=== PATIENT | male | born 1975 | race Caucasian/White ===

== ENCOUNTER → 2016-12-06 | Outpatient (CLI) | payer MEDICAID ==
--- NOTE | 2016-12-06 11:16 | DI ---
INDICATION: ITS.REASON: Z86.11 HX OF TUBERCULOSIS PROCEDURE: CHEST 2-VIEWS UPRIGHT (PA \T\ LAT) Encounter: Initial COMPARISON: None FINDINGS: The lungs are clear without evidence of focal abnormal airspace opacity. There is no pleural effusion or pneumothorax. The heart size, mediastinal contours and pulmonary vascularity are within normal limits. There is no significant skeletal abnormality. IMPRESSION: No acute cardiopulmonary disease. No radiographic evidence of active tuberculosis. .
== END ==
LOC: IMA 10:00
PROVIDERS: ATTEND Nurse Practitioner Family
DX: Z86.11 Personal history of tuberculosis (principal)

== ENCOUNTER 2017-11-10 12:03 | Inpatient (IN) ==
--- NOTE | 2017-11-10 12:17 | Emergency Department Report ---
Altered Mental Status HPI - General Stated Complaint: unresponsive Time Seen by Provider: 11/10/17 12:12 Source: EMS, RN notes reviewed, old records reviewed Mode of arrival: EMS Limitations: altered mental status - History of Present Illness HPI narrative: 42yo man presented to the ER today by EMS for "Altered Mental Status". Pt is from [place], [place]; no local PCM. Overnight, he drank most of a liter of vodka and passed out on his friend's couch. This AM, pt was 'unresponsive', so the friend called EMS. En route, pt would open his eyes, posture, and moan, but otherwise did not respond to EMS. complaint: altered mental status, decreased responsiveness Onset (ago): hour(s) Timing confirmed by: other (Friend) Severity: severe Consistency of symptoms: constant Context: alcohol abuse Treatments prior to arrival: IV fluid - Related Data Home Medications Medication Instructions Recorded Confirmed atorvastatin See Label Instructions PO .COMPLEX 03/27/17 aspirin 81 mg tablet,delayed 81 mg PO DAILY 07/05/17 release lisdexamfetamine 20 mg capsule 20 mg PO QAM 07/05/17 trazodone 150 mg tablet 150 mg PO HS tab 07/05/17 Allergies Allergy/AdvReac Type Severity Reaction Status Date / Time No Known Allergies Allergy Verified 07/05/17 08:45 Review of Systems Limitations: ROS unobtainable due to patient's medical condition [facility] Medical History (Last Reviewed 07/05/17 @ 08:58 by Dana West MD) Depression (Acute Medical) Anxiety (Acute Medical) History of blood clots (Acute Medical) Blindness (Acute Medical) Surgical History: Bilat CTR, 05/2012. Abbi filter in place Family History: Family History (Last Reviewed 07/05/17 @ 08:58 by Dana West MD) Mother No problems noted. - Social History Smoking status: Current every day smoker Substance use type: does not use Alcohol intake: former Last drink: hours (ago) Current occupational status: employed Current occupation: [employer] Exam - Limitations Limitations: altered mental status - General General appearance: lethargic - Head Head exam: atraumatic, normocephalic, normal inspection - Eye Eye exam: Present: normal appearance, PERRL, EOMI. Absent: scleral icterus - ENT ENT exam: Present: normal exam, normal oropharynx, mucous membranes moist, normal external ear exam - Neck Neck exam: Present: normal inspection, full ROM, trachea midline. Absent: tenderness, lymphadenopathy - Chest Chest inspection: Present: normal inspection, symmetric chest wall rise. Absent : tenderness, rash - Respiratory Respiratory exam: Present: normal lung sounds bilaterally. Absent: respiratory distress, wheezes, stridor, prolonged expiratory phase, crackles - Cardiovascular Cardiovascular exam: Present: normal rhythm, tachycardia, normal heart sounds. Absent: rubs, gallop, clicks - Extremities Exam Extremities exam: Present: normal inspection, full ROM, normal capillary refill. Absent: tenderness, pedal edema - Skin Skin exam: Present: warm, dry, intact, other (Pt has soiled himself (urine)). Absent: rash - Neurological Exam Neurological exam: Present: reflexes normal. Absent: alert - Expanded Neurological Exam Coma scale eye opening: to voice Coma scale motor response: localizes to pain Coma scale verbal response: none Coma scale total: 9 Course - Consultations Consultation #1: Hospitalist: Will admit for obs of acute alcoholic intoxication. Time: 13:36 Altered Mental Status - MDM Narrative Medical decision making narrative: Pt acutely intoxicated after being sober for 1 year. No other substances present on pts tox screen, but EtOH is 491 after being asleep on friend's couch for indeterminate period of time. Contacted hospitalist for obs admission. - Differential Diagnosis Likely: alcoholic intoxication, altered mental status, delirium, hypoglycemia, hyponatremia, subarachnoid hemorrhage - Medical Records Attestation: I reviewed the patient's medical records. - Lab Data Attestation: I reviewed the patient's lab results. Result diagrams: 11/10/17 12:11 11/10/17 12:11 - Radiology Data Attestation: I reviewed the patient's radiology results. CXR: Stable chest. No acute CT pathology. - EKG Data EKG #1 EKG attestation: Yes: I reviewed and interpreted this EKG. EKG shows normal: sinus rhythm, axis, intervals, QRS complexes, ST-T waves Rate: tachycardia Disposition Clinical Impression: Alcohol intoxication Qualifiers: Complication of substance-induced condition: uncomplicated Qualified Code(s): F10.920 - Alcohol use, unspecified with intoxication, uncomplicated Disposition: 02 To OBS [facility] [facility] Condition: Stable Time of Disposition: 13:45 - Seen By: physician
--- OUTSIDE RECORDS SUMMARY | 2017-11-10 12:36 | External Medical Summary | Clinical Summary ---
:1975 Author Organization [facility] Address [address] [id number] Care Team Providers Name Role Phone Unavailable Primary Care Provider Unavailable Allergies No Known Allergies Current Medications Prescription Sig. Disp. Refills Start Date End Date Status varenicline (CHANTIX) Take 0.5 mg by mouth daily. Day 1-3: take 0.5mg daily Active 0.5 MG tablet Day 4-7: take 0.5mg BID Days 7+: take 1mg BID traZODone (DESYREL) Take 1 tablet (100 30 tablet 0 07/18/2016 Active 100 MG mg total) by mouth tabletIndications: at bedtime as Insomnia needed for Sleep. Indications: Trouble Sleeping sertraline (ZOLOFT) Take 1 & 1/2 45 tablet 0 07/18/2016 Active 100 MG tabs po daily tabletIndications: Indications: Major Major Depressive Depressive Disorder Disorder hydrOXYzine (ATARAX) Take 1 tab po bid 60 tablet 0 07/18/2016 Active 50 MG prn anxiety tabletIndications: Indications: Anxiety Neurosis Anxiety Neurosis Active Problems Problem Noted Date Alcohol withdrawal (HCC) 07/16/2016 Resolved Problems Problem Noted Date Resolved Date Suicide ideation 07/16/2016 07/18/2016 Depression with suicidal ideation 03/12/2016 03/15/2016 Social History Tobacco Use Types Packs/Day Years Used Date Current Every Day Smoker Cigarettes 1 Smokeless Tobacco: Never Used Tobacco Cessation: Ready to Quit: Yes; Counseling Given: Yes Alcohol Use Drinks/Week oz/Week Comments Yes 2 pints/ day vodka Sex Assigned at Date Recorded Not on file Last Filed Vital Signs Vital Sign Reading Time Taken Blood Pressure 142/96 07/18/2016 8:24 AM [employer] Pulse 132 07/18/2016 8:24 AM [employer] Temperature 37.1 C (98.7 F) 07/18/2016 8:23 AM [employer] Respiratory Rate 18 07/18/2016 8:24 AM [employer] Oxygen Saturation 98% 07/17/2016 7:31 AM [employer] Inhaled Oxygen Concentration - - Weight 74.8 kg (165 lb) 07/16/2016 1:18 AM [employer] Height 170.2 cm (5' 7") 07/16/2016 1:18 AM [employer] Body Mass Index 25.84 07/16/2016 1:18 AM [employer] Plan of Treatment Health Maintenance Due Date Last Done Comments Varicella Vaccines (1 of 2 - 2 Dose Adolescent Series) 1987 DTaP,Tdap,and Td Vaccines (1 - Tdap) 1993 Influenza Vaccine (Season Ended) 2018 Implants Implanted Type Area Social Service Liaison Device Expiration Date Model / Identifier Serial / Lot Filter-Ivc Filter-IVC Results Not on filefrom Last 3 Months
[2017-11-10] MEDS: NS 1,000 ML IV SCH (12:59)
[2017-11-10 14:35] VITALS: BMI 20.5
[2017-11-10] MEDS ORDERED: PHENOBARBITAL 130mg/ml INJECTION IV PRN (15:11)
[2017-11-10] MEDS ORDERED: ONDANSETRON 4 MG/2 ML INJECTION IVP PRN (15:11)
[2017-11-10] MEDS ORDERED: FOLIC ACID 5 MG/ML INJECTION IVP SCH (15:11)
[2017-11-10] MEDS ORDERED: THIAMINE 200mg/2ml INJECTION IVP SCH (15:11)
[2017-11-10] MEDS ORDERED: THIAMINE 100 MG in NS 100 ML IVP SCH (16:00)
[2017-11-10] MEDS ORDERED: THIAMINE 100 MG in NS 50 ML IVP SCH (16:00)
--- NOTE | 2017-11-10 16:00 | History & Physical Report ---
History of Present Illness Date: 11/10/17 Chief complaint: altered mental status, acute alcohol intoxication HPI: Luis Carlos Virgen is a 42-year-old patient of Dr. James who was brought to [facility] ED today, 11/10/17 for evaluation of acute altered mental status. On exam, he is acutely intoxicated and a poor historian, refusing to answer some questions. Prior medical records, ED records and nursing notes were reviewed and contribute to the history. Luis Carlos reports that he has a history of depression and alcohol abuse. He states that he had been sober for about a year when he started drinking again on 11/03/17. He reports increased life stressors contributed to his relapse. He also admits to continual "thoughts of suicide" for "awhile" and reports that his suicidal ideations have been worse since he started drinking again. He states that he has been drinking about a gallon of vodka daily since 11/03/17. He has a known psychiatric history including depression with prior suicidal ideations and prior unsuccessful suicide attempts via drug over dose. He admits to a plan of over dosing on Seroquel but admits that he does not currently have Seroquel or access to Seroquel. ED records indicate that last night he drank over a liter of vodka and passed out on his friend's couch. This morning, his friend found him "unresponsive" and called EMS. Luis Carlos denies taking any pills or additional medications last night in addition to drinking. During transport to [facility] ED, EMS reported that he would open his eyes and moan but would not otherwise respond to EMS. Upon arrival to the ED, labs were obtained and revealed leukocytosis (WBC 12.5), elevated hemoglobin (19.2) and hypernatremia (Na 152) all consistent with dehydration. His troponin was negative and TSH was 0.52. Alcohol level was elevated at 491 and urine drug screen was negative. He admits to a past history of seizures with alcohol withdrawal. Due to his suicidal ideation and acute intoxication with dehydration and electrolyte abnormalities, Dr. Zaidi was consulted and he was admitted into observation status for closely monitoring and continued care. On exam, he is seen shortly after admission in his room, #[id number]. Nursing is present on exam. He has his head covered with his blankets and reluctantly acknowledges care team. He is selective in answering questions on exam and refuses to provide information including current home medications and pharmacy used to fill his medications. His story is inconsistent at times with report in ED with him stating that he was brought to the ED from prison today. He denies any acute physical complaints including no chest pain, shortness of breath, abdominal pain, nausea or vomiting. He does become tearful on exam when disclosing that his mother suffered from depression and committed suicide in front of him when he was 7 years old. Review of Systems All systems PM: 10-point ROS was reviewed, no additional remarkable complaints except Review of systems: Limited due to acute alcohol intoxication. - Constitutional Constitutional: Present: fatigue. Absent: chills, fever(s) - EENMT Eyes: Absent: photophobia Ears: Absent: ear pain Nose: Absent: nosebleeds Mouth/Throat: Present: dry mouth. Absent: sore throat, changes in swallowing EENMT Comments: Missing teeth. - Cardiovascular Cardiovascular: Absent: chest pain, palpitations, syncope, dyspnea on exertion, orthopnea, edema Rhythm: Present: regular rhythm Vascular: Absent: pallor of an extermity, pedal edema, unilateral swelling - Respiratory Respiratory: Absent: cough, dyspnea, hemoptysis, dyspnea on exertion, wheezing - Gastrointestinal Gastrointestinal: Absent: abdominal pain, diarrhea, hematochezia, melena, nausea , vomiting - Genitourinary Genitourinary: Absent: dysuria, flank pain, hematuria - Musculoskeletal Musculoskeletal: Present: back pain (chronic). Absent: deformity - Integumentary/Breasts Integumentary: Absent: rash - Neurological Neurological: Absent: confusion, dizziness, focal weakness - Psychiatric Psychiatric: Present: anxiety, depression, suicidal ideation - Endocrine Endocrine: Absent: flushing, heat intolerance, palpitations - Hematologic/Lymphatic Hematologic/Lymphatic: Absent: easy bruising - Allergic/Immunologic Allergic/Immunologic: Absent: seasonal rhinorrhea Past Medical History Medical History: Medical History (Last Reviewed 07/05/17 @ 08:58 by Dana West MD) Depression (Acute) Anxiety (Acute) History of blood clots (Acute) Medical History Updates: Alcohol abuse. Chronic pain - back and bilateral knees. Hyperlipidemia. CAD. Depression. Anxiety. Tobacco dependency. History of DVT - [place] filter in place. History of seizures with alcohol withdrawal. History of suicidal ideation with attempted overdose. Surgical History: Bilateral carpal tunnel release - 05/2012. [place] filter in place. Family History Updates: Mother - , age 24, suicide, major depression. Father - , age 50, CAD, [place]. brother, in house fire. Family History: As Above - Social History Smoking status: Current every day smoker Packs per day: 1.5 Packs-years: 25 second hand exposure: Yes Substance use type: does not use Alcohol intake frequency: 3 or more drinks per day (Relapse on 11/03/17 after a year sober) Last drink: hours (ago) Housing: house Household members: spouse, family (4 kids) Current occupational status: unemployed Current residence: Apartment/Private Home Social history: PCP - Dr. James. Medications Home Medications Medication Instructions Recorded Confirmed Type atorvastatin See Label Instructions PO .COMPLEX 03/27/17 History aspirin 81 mg tablet,delayed 81 mg PO DAILY 07/05/17 History release lisdexamfetamine 20 mg capsule 20 mg PO QAM 07/05/17 History trazodone 150 mg tablet 150 mg PO HS tab 07/05/17 History Allergies Allergy/AdvReac Type Severity Reaction Status Date / Time No Known Allergies Allergy Verified 07/05/17 08:45 Exam Vital Signs: Temperature 97.4 F 11/10/17 14:30 Pulse Rate 145 H 11/10/17 14:30 Respiratory Rate 22 11/10/17 14:30 Blood Pressure 121/79 11/10/17 14:30 Pulse Oximetry 97 11/10/17 14:30 Telemetry Rhythm: Sinus Tachycardia Height/Weight/BMI: Height 5 ft 8 in Weight 135 lb 5.821 oz Body Mass Index 20.5 Comments: Resting in bed; head and body covered with blankets; reluctant to provide history or exam. - Constitutional Present: no acute distress, well nourished, well developed - Routine HEENT Exam Head: Present: normocephalic, atraumatic Eye: Present: PERRL ENT: Present: mucous membranes dry (tacky mucous membranes) Comments: Missing teeth. - Routine Neck Exam Present: supple, full ROM, trachea midline - Routine Chest/Breast/Axilla Exam Chest wall: Absent: pacemaker - Routine Respiratory Exam Present: CTA bilaterally. Absent: respiratory distress, wheezes - Routine Cardiovascular Exam Present: S1, S2, tachycardia - Routine Abdominal Exam Present: soft, normoactive bowel sounds, non tender - Routine Extremities Exam Present: no edema, full ROM, pulses intact - Routine Back/Spine/Pelvis Exam Back/Spine: Present: full ROM. Absent: vertebral tenderness - Routine Skin Exam Present: intact, dry, warm Comments: Afebrile. - Routine Neurological Exam Present: alert, oriented X3, moving all extremities Speech slurred. - Routine Psychiatric Exam Present: suicidal ideation, depressed Results - Labs CBC & Chem 7: 11/10/17 12:11 11/10/17 12:11 Assessment and Plan (1) Alcohol intoxication Current visit: Yes Status: Acute Assessment and Plan: Assessment Acute alcohol intoxication, present on admission Dehydration Leukocytosis (WBC 12.5), present on admission Elevated hemoglobin (Hgb 19.2), present on admission Hypernatremia (Na 152), present on admission History of alcohol abuse and dependency Suicidal ideation Major depression Chronic pain - back and bilateral knees Hyperlipidemia CAD Anxiety Tobacco dependency History of DVT - Abbi filter in place History of seizures with alcohol withdrawal History of suicidal ideation with attempted overdose Plan Admit to observation status under the care of Dr. Zaidi. Patient placed on medical unit with close monitoring as there was no ICU bed available. IV fluids initiated in ED. Continue 1/2NS at 125cc/hr for dehydration and hypernatremia. Suicide and alcohol withdrawal precautions. Initiate Librium for acute alcohol withdrawal. Folic acid and thiamine daily given alcohol abuse history. Ativan PRN agitation/withdrawal symptoms as well as seizures. Zofran as needed for nausea/vomiting. Advance diet as tolerated. Monitor closely on telemetry. RT consult for tobacco cessation counselling. Nicotine patch available. SCDs for DVT prophalyxis. Protonix for GI protection. Will recheck labs in AM to monitor blood counts, electrolytes and renal function. Upon discharge, patient's care will be returned to his PCP, Dr. James. Once medically stable, patient is requesting assistance with alcohol abuse - was previously treated at [facility]. Recommend psychiatric evaluation prior to discharge. DVT Prophylaxis: SCD's GI Prophylaxis: Protonix Resuscitation Status: Full Code - Time spent with patient Time with patient PN: 50 minutes - Physician Narrative Physician: Erickson Zaidi MD Narrative: Date: 11/10/17 Time: 1655 Have independently interviewed and examined pt. Chart reviewed. Case discussed with Dr Wong and my PA. Care plan developed with my supervision; agree with above. Presents to ED as was unresponsive with am. Has been drinking for the past week- wanting to drink himself to . Not been eating well during this time. No stools. Some cough/congestion. Evaluated in ED. Sodium increased and blood ETOH level very elevated. Placed in OBS for further treatment. Lungs: decreased, no distress CV: tachy, regular HEENT: MM dry MSE: speech slow, global slowing of mentation Plan: OBS. IV for hydration and to correct sodium. Thiamine and folate. IV Protonix for protection from potential ETOH gastritis. Monitor lab - likely see HGV decrease with fluids as appears very hem concentrated due to dehydration. Benzo prn withdrawal. Will need psych evaluation due to depressive/suicidal thoughts. Hospital Course Summary Disclaimer: The visit summary below is not to be considered part of the above Progress Note. Hospital Course: Plan - 11/10/17: Admit to observation status under the care of Dr. Zaidi. Patient placed on medical unit with close monitoring as there was no ICU bed available. IV fluids initiated in ED. Continue 1/2NS at 125cc/hr for dehydration and hypernatremia. Suicide and alcohol withdrawal precautions. Initiate Librium for acute alcohol withdrawal. Folic acid and thiamine daily given alcohol abuse history. Ativan PRN agitation/withdrawal symptoms as well as seizures. Zofran as needed for nausea/vomiting. Advance diet as tolerated. Monitor closely on telemetry. RT consult for tobacco cessation counselling. Nicotine patch available. SCDs for DVT prophalyxis. Protonix for GI protection. Will recheck labs in AM to monitor blood counts, electrolytes and renal function. Upon discharge, patient's care will be returned to his PCP, Dr. James. Once medically stable, patient is requesting assistance with alcohol abuse - was previously treated at [facility]. Recommend psychiatric evaluation prior to discharge.
[2017-11-10] MEDS ORDERED: NICOTINE PATCH REMOVAL TD SCH (16:30)
[2017-11-10] MEDS: PANTOPRAZOLE 40 MG INJECTION IVP SCH (16:40)
[2017-11-10] MEDS: 1/2 NS 1,000 ML IV SCH ×2 (16:41→23:48)
[2017-11-10] MEDS ORDERED: CALCIUM CARBONATE Chewable 500mg TABLET PO PRN (16:47)
[2017-11-10] MEDS ORDERED: MAG-AL + SIM ORAL LIQUID 30ml PO PRN (16:48)
[2017-11-10] MEDS ORDERED: NS IVP SCH (17:00)
[2017-11-10] MEDS ORDERED: FOLIC ACID IVP SCH (17:00)
[2017-11-10] MEDS ORDERED: MAGNESIUM SULFATE 1gm PREMIX 1 GM/100 ML BAG IV ONE (18:18)
[2017-11-10] MEDS ORDERED: METOPROLOL 5mg/5ml INJECTION IVP ONE (18:18)
[2017-11-10] MEDS: NICOTINE 14 MG PATCH TD SCH (18:44)
[2017-11-10] MEDS: ACETAMINOPHEN 325 MG TABLET PO PRN (22:00)
[2017-11-11] MEDS ORDERED: METOPROLOL 5mg/5ml INJECTION IVP ONE (01:47)
[2017-11-11] MEDS: 1/2 NS 1,000 ML IV SCH ×4 (05:35→15:52)
[2017-11-11] MEDS: ACETAMINOPHEN 325 MG TABLET PO PRN ×2 (06:19→09:58)
--- NOTE | 2017-11-11 09:12 | Progress Note ---
- Date 11/11/17 Subjective: Luis Carlos is seen this morning during breakfast. He does not appear to be in any physical distress however overall affect is flat. Denies having pain or feeling short of breath. He reports that he is very depressed. Overnight he told staff that he has been having visual and auditory hallucinations. He also told nursing staff that he is suicidal and plans to go home and overdose on Seroquel. Objective Vital signs: Temperature 97.3 F 11/11/17 08:18 Pulse Rate 104 H 11/11/17 08:18 Respiratory Rate 16 11/11/17 08:18 Blood Pressure 112/74 11/11/17 08:18 Pulse Oximetry 97 11/11/17 08:18 Height/Weight/BMI: Height 1.73 m Weight 65.5 kg Body Mass Index 20.5 - Constitutional Present: no acute distress, well nourished, well developed - Routine HEENT Exam Eye: Present: EOMI ENT: Present: mucous membranes moist, dentition normal - Routine Respiratory Exam Present: CTA bilaterally. Absent: wheezes - Routine Cardiovascular Exam Present: RRR, S1, S2. Absent: murmur - Routine Abdominal Exam Present: soft, normoactive bowel sounds, non distended. Absent: tenderness - Routine Extremities Exam Present: no edema - Routine Skin Exam Present: intact, dry, warm - Routine Neurological Exam Present: alert, oriented X3, CN II-XII intact, moving all extremities - Routine Lymphatic Exam Lymphatic: Absent: adenopathy - Routine Psychiatric Exam Present: cooperative, depressed Results - Labs CBC & Chem 7: 11/11/17 05:09 11/11/17 05:09 Assessment and Plan (1) Alcohol intoxication Current visit: Yes Status: Acute Assessment and Plan: Assessment Acute alcohol intoxication, present on admission Dehydration Leukocytosis (WBC 12.5), present on admission Elevated hemoglobin (Hgb 19.2), present on admission Hypernatremia (Na 152), present on admission History of alcohol abuse and dependency Suicidal ideation Major depression Chronic pain - back and bilateral knees Hyperlipidemia CAD Anxiety Tobacco dependency History of DVT - Abbi filter in place History of seizures with alcohol withdrawal History of suicidal ideation with attempted overdose 11/11- Plan Continue 1/2NS at 125cc/hr for dehydration Hypernatremia improved Concerned about suicidal statements. Will consult Dr Lam for psychiatric evaluation today Continue Librium for ETOH withdrawal Folic acid and thiamine daily for replacement given alcohol abuse history. Encourage continued tobacco cessation DVT Prophylaxis: SCD's - Time spent with patient Time with patient PN: 25 minutes - Physician Narrative Physician: Erickson Zaidi MD Narrative: Date: 11/11/17 Time: 1700 Have independently interviewed and examined pt. Chart reviewed. Case discussed with my [employer]. Care plan developed with my supervision; agree with above. Doing fair-feels tired, weak, shaky, and slightly on edge. Little appetite, but able to keep foods in. Taking liquids well. Breathing stable. Lungs: clear bilaterally CV: tachy, regular AB: soft nt MSE: awake alert Gen : looks tired Plan: Change IVF to NS at 100cc/hr. May change thiamine and folic acid to po. Psych recommended routine lorazepam-felt patient's current mental status was too impaired to determine any suicidal thought--recommends further following. Will continue with supportive care. Lab improving. Medically stable. Hospital Course Summary Disclaimer: The visit summary below is not to be considered part of the above Progress Note. Hospital Course: Plan - 11/10/17: Admit to observation status under the care of Dr. Zaidi. Patient placed on medical unit with close monitoring as there was no ICU bed available. IV fluids initiated in ED. Continue 1/2NS at 125cc/hr for dehydration and hypernatremia. Suicide and alcohol withdrawal precautions. Initiate Librium for acute alcohol withdrawal. Folic acid and thiamine daily given alcohol abuse history. Ativan PRN agitation/withdrawal symptoms as well as seizures. Zofran as needed for nausea/vomiting. Advance diet as tolerated. Monitor closely on telemetry. RT consult for tobacco cessation counselling. Nicotine patch available. SCDs for DVT prophalyxis. Protonix for GI protection. Will recheck labs in AM to monitor blood counts, electrolytes and renal function. Upon discharge, patient's care will be returned to his PCP, Dr. James. Once medically stable, patient is requesting assistance with alcohol abuse - was previously treated at [facility]. Recommend psychiatric evaluation prior to discharge. 11/11 Continue 1/2NS at 125cc/hr for dehydration Hypernatremia improved Concerned about suicidal statements. Will consult Dr Lam for psychiatric evaluation today Continue Librium for ETOH withdrawal Folic acid and thiamine daily for replacement given alcohol abuse history. Encourage continued tobacco cessation
--- NOTE | 2017-11-11 09:39 | XRay Report ---
Indication: AMS PROCEDURE: XR chest 1V: Encounter: Initial Comparison: December 06, 2016 Findings: The lungs are stable in appearance without new focal airspace consolidation. There is no pleural effusion or pneumothorax. The heart size, pulmonary vascularity and mediastinal contours are unchanged. IVC filter. IMPRESSION: Stable appearance of the chest without acute cardiopulmonary disease. .
[2017-11-11] MEDS: PANTOPRAZOLE 40 MG INJECTION IVP SCH (09:58)
[2017-11-11] MEDS: MULTI-VITAMIN PLAIN TABLET PO SCH (10:55)
[2017-11-11] MEDS: SALINE FLUSH 10ml SYRINGE IVF PRN ×2 (12:34→19:02)
--- NOTE | 2017-11-11 13:13 | Neuropsychiatric Consult ---
[facility] HPI Date: 11/11/17 Requesting Physician: Erickson Zaidi Reason for Consultation: Alcohol WD Start Time: 12:30 Stop Time: 13:00 History of Present Illness: HPI: 42 Y/O CM with a long alcohol hx admitted for acute mental status changes and alcohol intoxication. Pt reported to staff he was depressed and wanting to OD on Seroquel and psychiatry was consulted. On face to face the pt is slightly confused and appears to have some possible ETOH WD delirium. He states it is 1997 and reports seeing bugs flying around the room last night although this has improved. He denies any current S/I. STRESSORS: Pt is a poor historian. he states he recently lost his job but tells me two different places of employment at different times. he states he relapsed on Alcohol about a week ago. PSYCH ROS: Pt reports feeling depressed with low interest, energy and motivation. he reports issues with sleep. he reports high anxiety at times. he does reprort he feels "disoriented". He denies pradeep. He reports seeing bugs flying in his room last night but none today. PAST PSYCH: Pt states he was at [facility] last year after OD on Seroquel. He states he has also been on Celexa and Trazodone. SUBSTANCE ABUSE: Pt reportedly has been drinking up to a gallon of vodka daily for the last week to two weeks. He has been to treatment in the past but is unable to elaborate. [facility] Patient Stated Medical History Other Cardiology Yes: BLOOD CLOT Depression Yes Clinic Medical History (Last Reviewed 07/05/17 @ 08:58 by Dana West MD) Depression (Acute Medical) Anxiety (Acute Medical) History of blood clots (Acute Medical) Medical History Updates: Alcohol abuse. Chronic pain - back and bilateral knees. Hyperlipidemia. CAD. Depression. Anxiety. Tobacco dependency. History of DVT - [place] filter in place. History of seizures with alcohol withdrawal. History of suicidal ideation with attempted overdose. Surgical History: Bilat [facility], 05/2012. Abbi filter in place Family History: Family History (Last Reviewed 07/05/17 @ 08:58 by Dana West MD) Mother No problems noted. Family History Updates: Mother - , age 24, suicide, major depression. Father - , age 50, CAD, [place]. Infant brother, in house fire. - Social History Smoking status: Current every day smoker Packs per day: 1.5 Packs-years: 25 second hand exposure: Yes Substance use type: does not use Alcohol intake: former Alcohol intake frequency: 3 or more drinks per day (Relapse on 11/03/17 after a year sober) Last drink: hours (ago) Housing: house Household members: spouse, family (4 kids) Current occupational status: employed Current occupation: [employer] Current residence: Apartment/Private Home Review of Systems - EENMT Ears: Absent: ear pain Nose: Absent: nosebleeds Mouth/Throat: Present: dry mouth. Absent: sore throat, changes in swallowing - Cardiovascular Rhythm: Present: regular rhythm Vascular: Absent: pallor of an extermity, pedal edema, unilateral swelling - Genitourinary Genitourinary: Absent: dysuria, flank pain, hematuria Mental Status Exam Vitals: Last Vital Signs Temp 98.6 F 11/11/17 12:27 Pulse 108 H 11/11/17 12:27 Resp 16 11/11/17 12:27 BP 120/70 11/11/17 12:27 Pulse Ox 98 11/11/17 12:27 Height: 1.73 m Weight: 65.5 kg - Mental Status Exam Muscle Strength/Tone: Normal Dressing: Casual Grooming: Fair Attitude: Cooperative Motor Activity: Retardation Eye Contact: Fair Speech: Slowed Volume: Soft Rhythm: Mumbled Orientation: Disoriented to time, Oriented to person, Oriented to place Mood: Neutral Affect: Sad Rate of Thoughts: Delayed Thought Organization: Confused Associations: Flight of Ideas Abstract Reasoning: Poor abstract reasoning Computation: Intact Thought Content: Normal Perception/Psychotic: Hx psychosis, not current, Psychotic Language: Naming Intact Fund of Knowledge: Poor fund of knowledge Memory: Poor-immediate Suicidal Ideation: Intermittent Homicidal Ideation: None Insight: Poor Judgement: Poor Impulse Control: Poor - Laboratory Result Diagrams: 11/11/17 05:09 11/11/17 05:09 Laboratory Results - last 24 hr 11/10/17 11/11/17 11/11/17 15:42 05:09 05:09 WBC 11.5 H RBC 4.77 Hgb 14.2 D Hct 41.4 D MCV 86.8 MCH 29.8 MCHC 34.3 RDW Std Deviation 41.6 Plt Count 111 L D MPV 10.6 Immature Gran % (Auto) 0.2 Neut % (Auto) 79.7 H Lymph % (Auto) 13.3 L [place] % (Auto) 6.1 Eos % (Auto) 0.3 Baso % (Auto) 0.4 Neut # (Auto) 9.1 H Lymph # (Auto) 1.5 [place] # (Auto) 0.7 Eos # (Auto) 0.0 Baso # (Auto) 0.1 Abs Immat Gran (auto) 0.02 INR 1.00 Turbidity Sodium Potassium Chloride Carbon Dioxide Anion Gap BUN Creatinine GFR Calculation BUN/Creatinine Ratio Glucose Calculated Osmolality Calcium Magnesium Total Bilirubin Icterus Index AST ALT Alkaline Phosphatase Total Protein Albumin Globulin Albumin/Globulin Ratio Specimen Hemolysis Alcohol, Quantitative 372 11/11/17 05:09 WBC RBC Hgb Hct MCV MCH MCHC RDW Std Deviation Plt Count MPV Immature Gran % (Auto) Neut % (Auto) Lymph % (Auto) [place] % (Auto) Eos % (Auto) Baso % (Auto) Neut # (Auto) Lymph # (Auto) [place] # (Auto) Eos # (Auto) Baso # (Auto) Abs Immat Gran (auto) INR Turbidity < 20 Sodium 136 D Potassium 3.7 Chloride 100 Carbon Dioxide 29 Anion Gap 7 BUN 16.0 Creatinine 0.7 L GFR Calculation 123 BUN/Creatinine Ratio 23 Glucose 93 Calculated Osmolality 263 Calcium 8.4 Magnesium 2.0 Total Bilirubin 1.70 H Icterus Index < 2 AST 55 ALT 36 Alkaline Phosphatase 50 D Total Protein 5.1 L Albumin 3.1 L Globulin 2.0 L Albumin/Globulin Ratio 1.6 Specimen Hemolysis < 15 Alcohol, Quantitative <10 Assessment and Plan (1) Alcohol withdrawal delirium Problem details: Suspect Current visit: Yes Status: Acute Continue medical management. Spoke with hospitalist about scheduling Ativan 1mg TID to help with withdrawal. Will have Dr. Kim reassess client for S /I once delirium has resolved (2) Major depressive disorder with current active episode Qualifiers: Major depression recurrence: recurrent Major depression episode severity: moderate Qualified Code(s): F33.1 - Major depressive disorder, recurrent, moderate Current visit: Yes Status: Acute
[2017-11-11] MEDS ORDERED: HALOPERIDOL 5 MG/ML INJECTION IVP PRN (13:51)
[2017-11-11] MEDS ORDERED: FALL RISK - PHARMACY CONSULT MC ONE (14:38)
[2017-11-11] MEDS: LORazepam 1 MG TABLET PO SCH ×2 (14:51→21:10)
[2017-11-11] MEDS: NS 1,000 ML IV SCH (15:37)
[2017-11-11] MEDS: NICOTINE 14 MG PATCH TD SCH (17:07)
[2017-11-11] MEDS: NICOTINE PATCH REMOVAL TD SCH (17:14)
[2017-11-12] MEDS: ACETAMINOPHEN 325 MG TABLET PO PRN (00:40)
[2017-11-12] MEDS: NS 1,000 ML IV SCH ×4 (01:36→12:10)
[2017-11-12] MEDS: MULTI-VITAMIN PLAIN TABLET PO SCH (08:54)
[2017-11-12] MEDS: LORazepam 1 MG TABLET PO SCH ×3 (08:54→20:42)
[2017-11-12] MEDS: PANTOPRAZOLE 40 MG INJECTION IVP SCH (08:54)
--- NOTE | 2017-11-12 14:48 | Progress Note ---
- Date 11/12/17 Subjective: Luis Carlos is seen today in follow up. He is watching TV and reports that he is feeling better. He states that his "depression" is better and his hallucinations have resolved. He denies having any pain or shortness of breath. No GI complaints. Overall medically stable. Objective Vital signs: Temperature 95.4 F L 11/12/17 07:23 Pulse Rate 94 11/12/17 07:23 Respiratory Rate 18 11/12/17 07:23 Blood Pressure 125/88 11/12/17 07:23 Pulse Oximetry 100 11/12/17 07:23 Height/Weight/BMI: Height 1.73 m Weight 66.1 kg Body Mass Index 20.5 - Constitutional Present: no acute distress, well nourished, well developed - Routine HEENT Exam Eye: Present: EOMI ENT: Present: mucous membranes moist, dentition normal - Routine Respiratory Exam Present: CTA bilaterally. Absent: wheezes - Routine Cardiovascular Exam Present: RRR, S1, S2. Absent: murmur - Routine Abdominal Exam Present: soft, normoactive bowel sounds, non distended. Absent: tenderness - Routine Extremities Exam Present: full ROM, pulses intact - Routine Back/Spine/Pelvis Exam Back/Spine: Present: full ROM - Routine Skin Exam Present: intact, dry, warm - Routine Neurological Exam Present: alert, oriented X3, CN II-XII intact, moving all extremities - Routine Lymphatic Exam Lymphatic: Absent: adenopathy - Routine Psychiatric Exam Present: cooperative Results - Labs CBC & Chem 7: 11/12/17 04:33 11/12/17 04:33 Assessment and Plan (1) Alcohol intoxication Current visit: Yes Status: Acute Assessment and Plan: Assessment Acute alcohol intoxication, present on admission Dehydration Leukocytosis (WBC 12.5), present on admission Elevated hemoglobin (Hgb 19.2), present on admission Hypernatremia (Na 152), present on admission History of alcohol abuse and dependency Suicidal ideation Major depression Chronic pain - back and bilateral knees Hyperlipidemia CAD Anxiety Tobacco dependency History of DVT - [place] filter in place History of seizures with alcohol withdrawal History of suicidal ideation with attempted overdose Plan Appreciated Psychiatric consultation Recommend [facility] evaluation. They are scheduled for tomorrow morning at 10am. Continues to require scheduled Ativan TID Suicide precautions Labs remain stable Case discussed with Dr Julio CM, nursing staff and attending DVT Prophylaxis: SCD's GI Prophylaxis: Protonix Resuscitation Status: Full Code - Time spent with patient Time with patient PN: 25 minutes - Physician Narrative Physician: Erickson Zaidi MD Narrative: Date: 11/12/17 Time: 1437 Have independently interviewed and examined pt. Chart reviewed. Case discussed with CM, nursing, and my GREEN MARKETER. Care plan developed with my supervision; agree with above. Sitting in chair. Denies medical complaints. No ab pain or nausea. Breathing well. Nursing notes increased agitation - 0.5mg Haldol did nothing to change symptoms. Lungs: decreased, no distress CV: tachy, regular AB: soft nt EXT: no edema MSE: flat affect, answers question with very brief phrases. Plan: Will change to inpatient admission status due to persistent suicidal thoughts and ideation. Psychiatry input appreciated. Can stop IVF as taking oral well. Will change Protonix to po. Increase Haldol due to agitation, continue Benzo prn. Provide safe supportive environment for pain. Clinically not able to discharge due to suicidal ideation and lack of safe discharge at this time. Hospital Course Summary Disclaimer: The visit summary below is not to be considered part of the above Progress Note. Hospital Course: Plan - 11/10/17: Admit to observation status under the care of Dr. Zaidi. Patient placed on medical unit with close monitoring as there was no ICU bed available. IV fluids initiated in ED. Continue 1/2NS at 125cc/hr for dehydration and hypernatremia. Suicide and alcohol withdrawal precautions. Initiate Librium for acute alcohol withdrawal. Folic acid and thiamine daily given alcohol abuse history. Ativan PRN agitation/withdrawal symptoms as well as seizures. Zofran as needed for nausea/vomiting. Advance diet as tolerated. Monitor closely on telemetry. RT consult for tobacco cessation counselling. Nicotine patch available. SCDs for DVT prophalyxis. Protonix for GI protection. Will recheck labs in AM to monitor blood counts, electrolytes and renal function. Upon discharge, patient's care will be returned to his PCP, Dr. James. Once medically stable, patient is requesting assistance with alcohol abuse - was previously treated at [facility]. Recommend psychiatric evaluation prior to discharge. 11/11 Continue 1/2NS at 125cc/hr for dehydration. Hypernatremia improved. Concerned about suicidal statements. Will consult Dr Lam for psychiatric evaluation today. Continue Librium for ETOH withdrawal. Folic acid and thiamine daily for replacement given alcohol abuse history. Encourage continued tobacco cessation. 11/12 Appreciated Psychiatric consultation. Recommend [facility] evaluation. They are scheduled for tomorrow morning at 10am. Continues to require scheduled Ativan TID. Suicide precautions. Labs remain stable. Can discontinue IVF as taking oral well. Will change Protonix to oral as well. Case discussed with Dr Julio CM, nursing staff and attending Will change to inpatient admission status due to ongoing suicidal ideation and lack of safe discharge at this time.
[2017-11-12] MEDS ORDERED: HALOPERIDOL 1 MG TABLET PO ONE (15:30)
[2017-11-12] MEDS: NICOTINE 14 MG PATCH TD SCH (17:18)
[2017-11-12] MEDS: NICOTINE PATCH REMOVAL TD SCH (17:18)
[2017-11-12] MEDS: HALOPERIDOL 5 MG/ML INJECTION IVP SCH (20:41)
[2017-11-13] MEDS: HALOPERIDOL 5 MG/ML INJECTION IVP SCH ×6 (00:18→21:27)
[2017-11-13] MEDS: SALINE FLUSH 10ml SYRINGE IVF PRN ×5 (00:19→16:02)
[2017-11-13] MEDS: PANTOPRAZOLE 40 MG TABLET PO SCH ×2 (07:08→10:15)
[2017-11-13] MEDS: MULTI-VITAMIN PLAIN TABLET PO SCH (10:15)
[2017-11-13] MEDS: LORazepam 1 MG TABLET PO SCH ×3 (11:29→21:28)
--- NOTE | 2017-11-13 11:46 | Neuropsych Progress Note ---
[facility] Subjective Date: 11/13/17 - Sujective/Severity of Illness Medications: Acetaminophen (Tylenol) 650 mg PO Q5H PRN PRN Reason: Discomfort Last Admin: 11/12/17 00:40 Dose: 650 mg Al Hydroxide/Mg Hydroxide (Maalox Plus) 30 ml PO Q3H PRN PRN Reason: Dyspepsia Calcium Carbonate (Tums) 1,000 mg PO PRN PRN PRN Reason: Dyspepsia Chlordiazepoxide HCl (Librium) 25 - 100 mg PO Q4H PRN PRN Reason: CIWA > 8 Last Admin: 11/12/17 03:29 Dose: 50 mg Haloperidol Lactate (Haldol) 1 mg IVP Q4HR [facility] Last Admin: 11/13/17 11:29 Dose: 1 mg Lorazepam (Ativan Inj) 2 - 4 mg IVP Q2H PRN PRN Reason: CIWA > 8 Last Admin: 11/12/17 18:22 Dose: 2 mg Lorazepam (Ativan Inj) 0.5 mg IVP Q4H PRN PRN Reason: Anxiety Last Admin: 11/11/17 10:12 Dose: 0.5 mg Lorazepam (Ativan) 1 mg PO TID [facility] Last Admin: 11/13/17 11:29 Dose: 1 mg Multivitamins (Theragran) 1 tab PO DAILY [facility] Last Admin: 11/13/17 10:15 Dose: 1 tab Nicotine (Nicoderm) 14 mg TD DAILY@1700 [facility] Last Admin: 11/12/17 17:18 Dose: 14 mg Nicotine (Nicotine Patch Removal) 1 removal TD DAILY@1700 [facility] Last Admin: 11/12/17 17:18 Dose: 1 removal Ondansetron HCl (Zofran) 4 mg IVP Q6H PRN PRN Reason: Nausea Last Admin: 11/10/17 17:02 Dose: 4 mg Pantoprazole Sodium (Protonix Tab) 40 mg PO ACB [facility] Last Admin: 11/13/17 10:15 Dose: 40 mg Phenobarbital Sodium (Luminal) 130 - 260 mg IV Q15M PRN Sodium Chloride (Iv Flush) 10 - 80 ml IVF PRN PRN PRN Reason: Flushing Last Admin: 11/13/17 11:29 Dose: 10 ml Thiamine HCl (Vitamin B-1) 100 mg PO DAILY [facility] Last Admin: 11/13/17 10:15 Dose: 100 mg Subjective: Patient seen and chart reviewed. Case discussed with treatment team. On interview, patient is pleasant and cooperative. He reports that he feels confused from time to time, and is continuing to have some symptoms of EtOH withdrawal such as dizziness. Patient states that he is no longer having suicidal thoughts and has no desire/plan/intent to harm himself. He is future- oriented and speaks about wanting to go to [place] as he has friends there. He feels that further psychiatric hospitalization is not necessary for his safety and he agrees to contact 911 if thoughts of self-harm return. Patient states that he has heard "loud bangs" while withdrawing from EtOH but denies any voices or command hallucinations. Patient denies any HI or AVH. Patient denies any adverse side effects related to psychotropic medications. Patient is willing to discuss treatment options with [facility] this morning. Start Time: 10:00 Stop Time: 10:20 Mental Status Exam Vitals: Last Vital Signs Temp 97.7 F 11/13/17 10:10 Pulse 102 H 11/13/17 10:10 Resp 16 11/13/17 10:10 BP 113/68 11/13/17 10:10 Pulse Ox 100 11/13/17 10:10 Height: 1.73 m Weight: 65 kg - Mental Status Exam Muscle Strength/Tone: Normal Dressing: Casual Grooming: Fair Attitude: Cooperative, Manipulative Motor Activity: Normal Eye Contact: Good Speech: Normal Volume: Normal Rhythm: Appropriate Rhythm Orientation: Oriented to person, Oriented to place, Oriented to time Mood: Neutral Affect: Relaxed Rate of Thoughts: Appropriate Rate Thought Organization: Organized Associations: Intact Abstract Reasoning: Intact, able to abstract Computation: Intact Thought Content: Somatic Concerns Perception/Psychotic: Hx psychosis, not current Language: Naming Intact Fund of Knowledge: Oc aware current events Memory: Grossly Intact Suicidal Ideation: Denies Homicidal Ideation: Denies Insight: Fair Judgement: Fair Impulse Control: Fair - Laboratory Result Diagrams: 11/13/17 04:42 11/13/17 04:42 Laboratory Results - last 24 hr 11/13/17 11/13/17 04:42 04:42 WBC 8.9 RBC 4.71 Hgb 14.1 Hct 41.5 MCV 88.1 MCH 29.9 MCHC 34.0 RDW Std Deviation 41.9 Plt Count 90 L MPV 11.3 Immature Gran % (Auto) 0.0 Neut % (Auto) 73.1 H Lymph % (Auto) 19.3 L [place] % (Auto) 4.0 Eos % (Auto) 3.4 Baso % (Auto) 0.2 Neut # (Auto) 6.5 Lymph # (Auto) 1.7 [place] # (Auto) 0.4 Eos # (Auto) 0.3 Baso # (Auto) 0.0 Abs Immat Gran (auto) 0.00 Turbidity < 20 Sodium 143 Potassium 3.5 L Chloride 106 Carbon Dioxide 28 Anion Gap 9 BUN 9.0 Creatinine 0.8 GFR Calculation 106 BUN/Creatinine Ratio 11 Glucose 104 Calculated Osmolality 274 Calcium 9.1 Icterus Index < 2 Specimen Hemolysis < 15 Assessment and Plan (1) Alcohol withdrawal delirium Current visit: Yes Status: Resolved (2) Major depressive disorder with current active episode Qualifiers: Major depression recurrence: recurrent Major depression episode severity: moderate Qualified Code(s): F33.1 - Major depressive disorder, recurrent, moderate Current visit: Yes Status: Acute Patient now denying SI and does not need further psychiatric stabilization as alcohol w/d delirium is resolving. Patient states he will call 911 if suicidal thoughts recur. Patient discussing options for alcohol rehab with [facility]. Recommend providing resources for patient for homeless shelters, [facility] for f/u as he has Medicaid. Will not provide Rx for stimulant at time of d/c due to recent delirium/psychosis. Hospital Course Summary Disclaimer: The visit summary below is not to be considered part of the above Progress Note. Hospital Course: Plan - 11/10/17: Admit to observation status under the care of Dr. Zaidi. Patient placed on medical unit with close monitoring as there was no ICU bed available. IV fluids initiated in ED. Continue 1/2NS at 125cc/hr for dehydration and hypernatremia. Suicide and alcohol withdrawal precautions. Initiate Librium for acute alcohol withdrawal. Folic acid and thiamine daily given alcohol abuse history. Ativan PRN agitation/withdrawal symptoms as well as seizures. Zofran as needed for nausea/vomiting. Advance diet as tolerated. Monitor closely on telemetry. RT consult for tobacco cessation counselling. Nicotine patch available. SCDs for DVT prophalyxis. Protonix for GI protection. Will recheck labs in AM to monitor blood counts, electrolytes and renal function. Upon discharge, patient's care will be returned to his PCP, Dr. James. Once medically stable, patient is requesting assistance with alcohol abuse - was previously treated at [facility]. Recommend psychiatric evaluation prior to discharge. 11/11 Continue 1/2NS at 125cc/hr for dehydration. Hypernatremia improved. Concerned about suicidal statements. Will consult Dr Lam for psychiatric evaluation today. Continue Librium for ETOH withdrawal. Folic acid and thiamine daily for replacement given alcohol abuse history. Encourage continued tobacco cessation. 11/12 Appreciated Psychiatric consultation. Recommend [facility] evaluation. They are scheduled for tomorrow morning at 10am. Continues to require scheduled Ativan TID. Suicide precautions. Labs remain stable. Can discontinue IVF as taking oral well. Will change Protonix to oral as well. Case discussed with Dr Julio CM, nursing staff and attending Will change to inpatient admission status due to ongoing suicidal ideation and lack of safe discharge at this time.
[2017-11-13] MEDS: NICOTINE 14 MG PATCH TD SCH ×2 (12:59→18:15)
--- NOTE | 2017-11-13 16:24 | Progress Note ---
- Date 11/13/17 Subjective: F/U: Acute ETOH intoxication Doing better. Eating well-not reporting ab pain or nausea. Breathing well. Strength improving. Reported to psych this am that suicidal thoughts have stopped. Open to inpatient treatment. Looking at [facility]. Objective Vital signs: Temperature 98.1 F 11/13/17 15:35 Pulse Rate 125 H 11/13/17 15:35 Respiratory Rate 16 11/13/17 15:35 Blood Pressure 110/68 11/13/17 15:35 Pulse Oximetry 98 11/13/17 15:35 Height/Weight/BMI: Weight 65 kg - Constitutional Present: well nourished, well developed, average body habitus, cooperative. Absent: combative, agitated, somnolent - Routine HEENT Exam Head: Present: normocephalic, atraumatic Eye: Present: EOMI, PERRL ENT: Present: mucous membranes moist - Routine Respiratory Exam Present: CTA bilaterally. Absent: rales, respiratory distress, rhonchi, wheezes , crackles - Routine Cardiovascular Exam Present: no murmur, tachycardia (Regular ) - Routine Abdominal Exam Present: soft, normoactive bowel sounds, non distended, non tender. Absent: guarding - Routine Extremities Exam Present: no edema, pulses intact. Absent: cyanosis, clubbing - Routine Musculoskeletal Exam Musculoskeletal: Present: no clubbing or cyanosis - Routine Skin Exam Present: dry, warm - Routine Neurological Exam Present: alert, CN II-XII intact, moving all extremities, vision grossly intact , hearing grossly intact, normal speech. Absent: motor deficit, altered mental status - Routine Psychiatric Exam Present: normal affect, cooperative. Absent: anxious, agitated Results - Labs CBC & Chem 7: 11/13/17 04:42 11/13/17 04:42 Assessment and Plan (1) Alcohol intoxication Current visit: Yes Status: Acute Assessment and Plan: Assessment Acute alcohol intoxication, present on admission Dehydration Leukocytosis (POA) - resolved Elevated hemoglobin (Hgb 19.2), present on admission Hypernatremia (POA) - resolved History of alcohol abuse and dependency Suicidal ideation - resolved Major depression Chronic pain - back and bilateral knees Hyperlipidemia CAD Anxiety Tobacco dependency History of DVT - [place] filter in place History of seizures with alcohol withdrawal History of suicidal ideation with attempted overdose Plan Clinically improving. Suicidal thoughts resolved. Open to inpatient alcohol treatment. Arrangements being made for [facility]. Will continue with care and support. Likely discharge to [facility] tomorrow if continues to do well. Case discussed with CM/Social work. Time spent with patient care 25 minutes. DVT Prophylaxis: SCD's Resuscitation Status: Full Code - Time spent with patient Time with patient PN: 25 minutes - Physician Narrative Physician: Erickson Zaidi MD Narrative: Date: 11/13/17 Time: 1619 Hospital Course Summary Disclaimer: The visit summary below is not to be considered part of the above Progress Note. Hospital Course: 11/10/17 Admit to observation status under the care of Dr. Zaidi. Patient placed on medical unit with close monitoring as there was no ICU bed available. IV fluids initiated in ED. Continue 1/2NS at 125cc/hr for dehydration and hypernatremia. Suicide and alcohol withdrawal precautions. Initiate Librium for acute alcohol withdrawal. Folic acid and thiamine daily given alcohol abuse history. Ativan PRN agitation/withdrawal symptoms as well as seizures. Zofran as needed for nausea/vomiting. Advance diet as tolerated. Monitor closely on telemetry. RT consult for tobacco cessation counselling. Nicotine patch available. SCDs for DVT prophalyxis. Protonix for GI protection. Will recheck labs in AM to monitor blood counts, electrolytes and renal function. Upon discharge, patient's care will be returned to his PCP, Dr. James. Once medically stable, patient is requesting assistance with alcohol abuse - was previously treated at [facility]. Recommend psychiatric evaluation prior to discharge. 11/11 Continue 1/2NS at 125cc/hr for dehydration. Hypernatremia improved. Concerned about suicidal statements. Will consult Dr Lam for psychiatric evaluation today. Continue Librium for ETOH withdrawal. Folic acid and thiamine daily for replacement given alcohol abuse history. Encourage continued tobacco cessation. 11/12 Appreciated Psychiatric consultation. Recommend [facility] evaluation. They are scheduled for tomorrow morning at 10am. Continues to require scheduled Ativan TID. Suicide precautions. Labs remain stable. Can discontinue IVF as taking oral well. Will change Protonix to oral as well. Case discussed with Dr Kim, REBECCA, nursing staff and attending Will change to inpatient admission status due to ongoing suicidal ideation and lack of safe discharge at this time. 11/13 Clinically improving. Suicidal thoughts resolved. Open to inpatient alcohol treatment. Arrangements being made for [facility]. Will continue with care and support. Likely discharge to [facility] tomorrow if continues to do well.
[2017-11-13] MEDS: NICOTINE PATCH REMOVAL TD SCH (21:28)
[2017-11-14] MEDS: HALOPERIDOL 5 MG/ML INJECTION IVP SCH ×4 (00:41→14:56)
[2017-11-14] MEDS: SALINE FLUSH 10ml SYRINGE IVF PRN ×4 (00:41→14:56)
[2017-11-14] MEDS: PANTOPRAZOLE 40 MG TABLET PO SCH (06:56)
[2017-11-14 09:58] VITALS: BP 131/68; PULSE 112; RESP 20; TEMP 97.3; O2SAT 98
[2017-11-14] MEDS: NICOTINE 14 MG PATCH TD SCH (10:18)
[2017-11-14] MEDS: LORazepam 1 MG TABLET PO SCH ×2 (10:18→14:56)
[2017-11-14] MEDS: MULTI-VITAMIN PLAIN TABLET PO SCH (10:20)
--- NOTE | 2017-11-14 13:09 | Progress Note ---
- Date 11/14/17 Subjective: F/U: Acute ETOH intoxication Doing well today. Eating well. Breathing well. Ambulatory. Blood pressure stable. No signs of withdrawal. Not reporting suicidal thought. Objective Vital signs: Temperature 97.3 F 11/14/17 08:00 Pulse Rate 112 H 11/14/17 08:00 Respiratory Rate 20 11/14/17 08:00 Blood Pressure 131/68 11/14/17 08:00 Pulse Oximetry 98 11/14/17 08:00 Height/Weight/BMI: Weight 62.8 kg - Constitutional Present: well nourished, well developed, average body habitus, cooperative. Absent: combative, agitated, somnolent, obtunded - Routine HEENT Exam Head: Present: normocephalic, atraumatic Eye: Present: EOMI, PERRL, normal accommodation ENT: Present: mucous membranes moist - Routine Respiratory Exam Present: CTA bilaterally. Absent: rales, respiratory distress, rhonchi, wheezes , crackles - Routine Cardiovascular Exam Present: tachycardia (Regular) - Routine Abdominal Exam Present: soft, normoactive bowel sounds, non distended, non tender. Absent: guarding - Routine Extremities Exam Present: no edema, pulses intact. Absent: cyanosis, clubbing - Routine Musculoskeletal Exam Musculoskeletal: Present: no clubbing or cyanosis - Routine Skin Exam Present: dry, warm - Routine Neurological Exam Present: alert, moving all extremities, vision grossly intact, hearing grossly intact, normal speech. Absent: motor deficit, altered mental status - Routine Psychiatric Exam Present: normal affect, cooperative. Absent: agitated, paranoid, manic Results - Labs CBC & Chem 7: 11/13/17 04:42 11/13/17 04:42 Assessment and Plan (1) Alcohol intoxication Current visit: Yes Status: Acute Assessment and Plan: Assessment Acute alcohol intoxicatio (POA) Dehydration - resolved Leukocytosis (POA) - resolved Elevated hemoglobin (Hgb 19.2), present on admission Hypernatremia (POA) - resolved History of alcohol abuse and dependency Suicidal ideation - resolved Major depression Chronic pain - back and bilateral knees Hyperlipidemia CAD Anxiety Tobacco dependency History of DVT - [place] filter in place History of seizures with alcohol withdrawal History of suicidal ideation with attempted overdose Plan Clinically stable. Eating well, breathing well, ambulating well. No suicidal thoughts. Will discharge to home. [facility] not an [facility] as barred from [facility] due to being sexually inappropriate. Strongly recommend ETOH treatment. Has had [facility] assessment. May continue prior home medications. Can continue lorazepam 1 mg BID prn withdrawal symptoms. Haldol 0.5mg TID prn agitative symptoms. F/U with Cathy James in 1 week. See orders for details. Case discussed with CM/Social work. Time spent with patient care and discharge greater than 30 minutes. DVT Prophylaxis: SCD's Resuscitation Status: Full Code - Physician Narrative Physician: Erickson Zaidi MD Narrative: Date: 11/14/17 Time: 1304 Hospital Course Summary Disclaimer: The visit summary below is not to be considered part of the above Progress Note. Hospital Course: 11/10/17 Admit to observation status under the care of Dr. Zaidi. Patient placed on medical unit with close monitoring as there was no ICU bed available. IV fluids initiated in ED. Continue 1/2NS at 125cc/hr for dehydration and hypernatremia. Suicide and alcohol withdrawal precautions. Initiate Librium for acute alcohol withdrawal. Folic acid and thiamine daily given alcohol abuse history. Ativan PRN agitation/withdrawal symptoms as well as seizures. Zofran as needed for nausea/vomiting. Advance diet as tolerated. Monitor closely on telemetry. RT consult for tobacco cessation counselling. Nicotine patch available. SCDs for DVT prophalyxis. Protonix for GI protection. Will recheck labs in AM to monitor blood counts, electrolytes and renal function. Upon discharge, patient's care will be returned to his PCP, Dr. James. Once medically stable, patient is requesting assistance with alcohol abuse - was previously treated at [facility]. Recommend psychiatric evaluation prior to discharge. 11/11 Continue 1/2NS at 125cc/hr for dehydration. Hypernatremia improved. Concerned about suicidal statements. Will consult Dr Lam for psychiatric evaluation today. Continue Librium for ETOH withdrawal. Folic acid and thiamine daily for replacement given alcohol abuse history. Encourage continued tobacco cessation. 11/12 Appreciated Psychiatric consultation. Recommend [facility] evaluation. They are scheduled for tomorrow morning at 10am. Continues to require scheduled Ativan TID. Suicide precautions. Labs remain stable. Can discontinue IVF as taking oral well. Will change Protonix to oral as well. Case discussed with Dr Julio CM, nursing staff and attending Will change to inpatient admission status due to ongoing suicidal ideation and lack of safe discharge at this time. 11/13 Clinically improving. Suicidal thoughts resolved. Open to inpatient alcohol treatment. Arrangements being made for [facility]. Will continue with care and support. Likely discharge to [facility] tomorrow if continues to do well. 11/14 Clinically stable. Eating well, breathing well, ambulating well. No suicidal thoughts. Will discharge to home. [facility] not an option as barred from [facility] due to being sexually inappropriate. Strongly recommend ETOH treatment. Has had [facility] assessment. May continue prior home medications. Can continue lorazepam 1 mg BID prn withdrawal symptoms (#20). Haldol 0.5mg TID prn agitative symptoms (#20). F/U with Cathy James in 1 week. See orders for details.
--- NOTE | 2017-11-14 15:43 | Discharge Summary ---
Discharge Information Date of admission: 11/12/17 14:35 Anticipated date of discharge: 11/14/17 Attending Physician: Erickson Zaidi MD Primary care physician: Cathy James Consults: Physician Consult: Deidra Kim Reason For Exam: PSYCH CONSULT Case Management Consult Reason For Exam: SOCIAL SERVICE CONSULT FOR ALCOHOLISM - Discharge Diagnosis (1) Alcohol intoxication Status: Acute Discharge diagnosis Acute alcohol intoxication (POA) Associated conditions and complications Dehydration - resolved Leukocytosis (POA) - resolved Elevated hemoglobin (Hgb 19.2), present on admission Hypernatremia (POA) - resolved History of alcohol abuse and dependency Suicidal ideation - resolved Major depression Chronic pain - back and bilateral knees Hyperlipidemia CAD Anxiety Tobacco dependency History of DVT - Abbi filter in place History of seizures with alcohol withdrawal History of suicidal ideation with attempted overdose - Laboratory Labs: Admit Lab 11/10/17 12:11 WBC 12.5 H Hgb 19.2 H Hct 54.5 H MCV 85.0 Plt Count 181 Neut % (Auto) 80.8 H Lymph % (Auto) 12.9 L [place] % (Auto) 5.7 Eos % (Auto) 0.1 Baso % (Auto) 0.3 Admit Lab 11/10/17 12:11 Sodium 152 H Potassium 4.0 Chloride 103 Carbon Dioxide 26 Anion Gap 23 H BUN 18.0 Creatinine 0.8 GFR Calculation 106 BUN/Creatinine Ratio 23 Glucose 115 H Calculated Osmolality 295 H Calcium 8.6 Total Bilirubin 1.00 AST 58 ALT 37 Alkaline Phosphatase 68 Troponin I < 0.012 Total Protein 6.9 Albumin 4.5 Globulin 2.4 Albumin/Globulin Ratio 1.9 TSH 0.52 INR 11/11/17 05:09 INR 1.00 Admit Lab 11/10/17 12:11 Alcohol, Quantitative 491 11/13/17 04:42 11/13/17 04:42 - Radiology Radiology: Date of Exam: 11/10/17 Type of Exam: XR chest 1V Findings: The lungs are stable in appearance without new focal airspace consolidation. There is no pleural effusion or pneumothorax. The heart size, pulmonary vascularity and mediastinal contours are unchanged. IVC filter. IMPRESSION: Stable appearance of the chest without acute cardiopulmonary disease. History of Present Illness HPI: Luis Carlos Virgen is a 42-year-old patient of Dr. James who was brought to [facility] ED today, 11/10/17 for evaluation of acute altered mental status. On exam, he is acutely intoxicated and a poor historian, refusing to answer some questions. Prior medical records, ED records and nursing notes were reviewed and contribute to the history. Luis Carlos reports that he has a history of depression and alcohol abuse. He states that he had been sober for about a year when he started drinking again on 11/03/17. He reports increased life stressors contributed to his relapse. He also admits to continual "thoughts of suicide" for "awhile" and reports that his suicidal ideations have been worse since he started drinking again. He states that he has been drinking about a gallon of vodka daily since 11/03/17. He has a known psychiatric history including depression with prior suicidal ideations and prior unsuccessful suicide attempts via drug over dose. He admits to a plan of over dosing on Seroquel but admits that he does not currently have Seroquel or access to Seroquel. ED records indicate that last night he drank over a liter of vodka and passed out on his friend's couch. This morning, his friend found him "unresponsive" and called EMS. Luis Carlos denies taking any pills or additional medications last night in addition to drinking. During transport to [facility] ED, EMS reported that he would open his eyes and moan but would not otherwise respond to EMS. Upon arrival to the ED, labs were obtained and revealed leukocytosis (WBC 12.5), elevated hemoglobin (19.2) and hypernatremia (Na 152) all consistent with dehydration. His troponin was negative and TSH was 0.52. Alcohol level was elevated at 491 and urine drug screen was negative. He admits to a past history of seizures with alcohol withdrawal. Due to his suicidal ideation and acute intoxication with dehydration and electrolyte abnormalities, Dr. Zaidi was consulted and he was admitted into observation status for closely monitoring and continued care. On exam, he is seen shortly after admission in his room, #[id number]. Nursing is present on exam. He has his head covered with his blankets and reluctantly acknowledges care team. He is selective in answering questions on exam and refuses to provide information including current home medications and pharmacy used to fill his medications. His story is inconsistent at times with report in ED with him stating that he was brought to the ED from [facility] today. He denies any acute physical complaints including no chest pain, shortness of breath, abdominal pain, nausea or vomiting. He does become tearful on exam when disclosing that his mother suffered from depression and committed suicide in front of him when he was 7 years old. For complete details of the H&P refer to that document. Objective Vital signs: Temperature 97.3 F 11/14/17 08:00 Pulse Rate 112 H 11/14/17 08:00 Respiratory Rate 20 11/14/17 08:00 Blood Pressure 131/68 11/14/17 08:00 Pulse Oximetry 98 11/14/17 08:00 Height/Weight/BMI: Weight 62.8 kg Hospital Course This is a general summary of the patient's hospital course. For more details refer to the complete medical record. Hospital course: 11/10/17 Admit to observation status under the care of Dr. Zaidi. Patient placed on medical unit with close monitoring as there was no ICU bed available. IV fluids initiated in ED. Continue 1/2NS at 125cc/hr for dehydration and hypernatremia. Suicide and alcohol withdrawal precautions. Initiate Librium for acute alcohol withdrawal. Folic acid and thiamine daily given alcohol abuse history. Ativan PRN agitation/withdrawal symptoms as well as seizures. Zofran as needed for nausea/vomiting. Advance diet as tolerated. Monitor closely on telemetry. RT consult for tobacco cessation counselling. Nicotine patch available. SCDs for DVT prophalyxis. Protonix for GI protection. Will recheck labs in AM to monitor blood counts, electrolytes and renal function. Upon discharge, patient's care will be returned to his PCP, Dr. James. Once medically stable, patient is requesting assistance with alcohol abuse - was previously treated at [facility]. Recommend psychiatric evaluation prior to discharge. 11/11 Continue 1/2NS at 125cc/hr for dehydration. Hypernatremia improved. Concerned about suicidal statements. Will consult Dr Lam for psychiatric evaluation today. Continue Librium for ETOH withdrawal. Folic acid and thiamine daily for replacement given alcohol abuse history. Encourage continued tobacco cessation. 11/12 Appreciated Psychiatric consultation. Recommend [facility] evaluation. They are scheduled for tomorrow morning at 10am. Continues to require scheduled Ativan TID. Suicide precautions. Labs remain stable. Can discontinue IVF as taking oral well. Will change Protonix to oral as well. Case discussed with Dr Julio CM, nursing staff and attending Will change to inpatient admission status due to ongoing suicidal ideation and lack of safe discharge at this time. 11/13 Clinically improving. Suicidal thoughts resolved. Open to inpatient alcohol treatment. Arrangements being made for [facility]. Will continue with care and support. Likely discharge to [facility] tomorrow if continues to do well. 11/14 Clinically stable. Eating well, breathing well, ambulating well. No suicidal thoughts. Will discharge to home. [facility] not an option as barred from [facility] due to being sexually inappropriate. Strongly recommend ETOH treatment. Has had [facility] assessment. May continue prior home medications. Can continue lorazepam 1 mg BID prn withdrawal symptoms (#20). Haldol 0.5mg TID prn agitative symptoms (#20). F/U with Cathy James in 1 week. See orders for details. Time spent with patient: discharge greater than 30 minutes Resuscitation Status: Full Code Discharge Plan - Discharge Disposition Discharge Date: 11/14/17 Disposition: Discharged Home, Self-Care *Condition: Stable Reason For Visit (Visit label in EMR): acute intoxication - Discharge Medications *Discharge Medications: New Haloperidol [Haldol] 0.5 mg PO TID PRN #20 tab PRN Reason: Agitation/Restlessness RX: LORazepam [Ativan] 1 mg PO BID PRN #20 tab PRN Reason: Alcohol Withdrawl Symptoms RX: Multivitamin [Multivitamins] 1 tab PO DAILY #1 bottle Continue trazodone 150 mg tablet 150 mg PO HS tab aspirin 81 mg tablet,delayed release 81 mg PO DAILY lisdexamfetamine 20 mg capsule 20 mg PO QAM No Action atorvastatin See Label Instructions PO .COMPLEX - Discharge Packet/Instructions *Diet: Regular - Avoid alcohol *Activity: As tolerated *Pain Management/Treatment: Tylenol as needed for pain - maximum 3250mg in any 24 hour period of time. *Wound Care: N/A *Expected Signs/Symptoms: Improvement of functional status and overall health if alcohol can be avoided. *Notify Physician if: Temp >100.4. Nausea or vomiting. *During Business Hours Contact: Cathy House *After Business Hours Contact: Call [facility] and have Cathy James or her covering provider contacted. *Pending Lab/Results: No Pending Lab - Referrals/Follow Up *Referrals/Follow Up: Cathy James APRN [Advanced Practice Nurse] - 1 Week (Hospital follow up for acute alcohol intoxication APPOINTMENT ON 10/22 AT 1:45 CHECK IN.) - Patient Handouts - Dismissal Complete Discharge Instructions are:: Complete Physician Narrative - Narrative Physician: Erickson Zaidi MD Attestation Narrative: Date: 11/14/17 Time: 1540 I have independently interviewed and examined patient prior to discharge. See my progress note for details. Medically stable for discharge to home.
== END 2017-11-14 14:55 | disposition home or self-care (01) | DRG 897 ==
LOC: MED 12:03 → ED 12:05 → MED 14:25
PROVIDERS: ADMIT Hospitalist; ATTEND Hospitalist

== ENCOUNTER 2017-11-15 22:47 | Inpatient (IN) ==
[2017-11-15] MEDS ORDERED: CHARCOAL Activated 25gm/120ml SUSP PO ONE (23:01)
[2017-11-15] MEDS ORDERED: NS 1,000 ML IV ONE (23:01)
--- NOTE | 2017-11-15 23:12 | Emergency Department Report ---
Overdose HPI - General Stated Complaint: Poss OD Time Seen by Provider: 11/15/17 22:49 Source: patient Mode of arrival: ambulatory Limitations: no limitations - History of Present Illness HPI Narrative: Patient presents acutely intoxicated stating that he has overdosed on his lorazepam and Haldol after getting dismissed from the hospital yesterday. Patient was admitted to this hospital 11/12 for severe alcohol intoxication and unresponsiveness. Patient sobered rapidly, and was found to be depressed and despondent with suicidal ideation. Over the course of the 2 days of his admission patient apparently improved, and was dismissed with lorazepam 1 mg #20 , and Haldol 0.5 mg to 20. No alcohol rehabilitation could be found for the patient, and he was referred back to Zoraida James the patient's primary care provider at [facility]. Patient states that he immediately went home and began drinking, and has had his typical one gallon of vodka when he decided to kill himself. Patient states that he took all of the lorazepam, 20 mg total, and all of the Haldol, 10 mg total at approximately 9 PM tonight. Patient notified his roommates that he had attempted suicide, but states that he still wants to . - Related Data Home Medications Medication Instructions Recorded Confirmed atorvastatin See Label Instructions PO .COMPLEX 03/27/17 aspirin 81 mg tablet,delayed 81 mg PO DAILY 07/05/17 release lisdexamfetamine 20 mg capsule 20 mg PO QAM 07/05/17 trazodone 150 mg tablet 150 mg PO HS tab 07/05/17 Previous Rx's Medication Instructions Recorded Haloperidol [Haldol] 0.5 mg PO TID PRN #20 tab 11/14/17 LORazepam [Ativan] 1 mg PO BID PRN #20 tab 11/14/17 Multivitamin [Multivitamins] 1 tab PO DAILY #1 bottle 11/14/17 Allergies Allergy/AdvReac Type Severity Reaction Status Date / Time No Known Allergies Allergy Verified 07/05/17 08:45 Review of Systems All systems: reviewed and negative except as stated PFS Patient Stated Medical History Seizures Yes: alcoholic seizures Other Cardiology Yes: BLOOD CLOTx4 Depression Yes Panic Disorder No Clinic Medical History (Last Reviewed 07/05/17 @ 08:58 by Dana West MD) Depression (Acute Medical) Anxiety (Acute Medical) History of blood clots (Acute Medical) Medical History Updates: Alcohol abuse. Chronic pain - back and bilateral knees. Hyperlipidemia. CAD. Depression. Persistent and recurrent suicidal ideation/gestures. Anxiety. Tobacco dependency. History of DVT - Abbi filter in place. History of seizures with alcohol withdrawal. History of suicidal ideation with attempted overdose. Surgical History: Bilat [facility], 05/2012. [place] filter in place Family History: Family History (Last Reviewed 07/05/17 @ 08:58 by Dana West MD) Mother No problems noted. Family History Updates: Mother - , age 24, suicide, major depression. Father - , age 50, CAD, [place]. brother, in house fire. - Social History Smoking status: Current every day smoker Packs-years: 25 second hand exposure: Yes Substance use type: does not use Alcohol intake: former Alcohol intake frequency: 3 or more drinks per day (Relapse on 11/03/17 after a year sober) Housing: house Household members: spouse, family (4 kids) Current occupational status: employed Current occupation: [employer] Current residence: Apartment/Private Home Physical Exam - Limitations Limitations: no limitations, altered mental status (patient does appear intoxicated with slurred speech, glazed eyes, and slow responses. However patient is alert and somewhat cooperative) - General General appearance: alert - Normal Exams: Head:: Normocephalic without trauma Eyes:: Pupils are PERRLA w/ EOMI, No scleral icterus, irritation, or foreign bodies noted ENMT:: No facial trauma, nasal exudates, pharyngeal erythema, or exudates are noted Neck:: Full range of motion, without adenopathy, JVD, bruits or thyromegaly Chest/Respirations:: Clear all espinoza, with good airflow, and symmetry bilaterally Cardiovascular:: without murmur or gallop, Pulses 2+ all extremities, capillary refill, <2 seconds all extremities Abdomen:: Bowel sounds positive, soft, non-tender, non-distended, no hepatosplenomegaly, masses or bruits noted Lymphatic:: No lymphadenopathy, or lymphedema noted Musculoskeletal:: No tenderness, or deformity noted, good range of motion, all extremities Integumentary:: No rashes, hives, or bruising noted, hair and nails, without abnormality Neurological:: Patient is alert, and oriented, cranial nerves, motor/sensory/ cerebellar, exams w/o gross deficits, to observation Psychiatric:: Patient exhibits, appropriate attention, emotion and affect - Respiratory Respiratory exam: Present: normal lung sounds bilaterally. Absent: respiratory distress, wheezes, stridor, accessory muscle use, prolonged expiratory phase - Cardiovascular Cardiovascular exam: Present: normal rhythm, tachycardia, normal heart sounds Course Vital Signs Temperature 98.7 F 11/15/17 22:47 Pulse Rate 118 H 11/15/17 22:47 Respiratory Rate 16 11/15/17 22:47 Blood Pressure 107/67 11/15/17 22:47 Pulse Oximetry 98 11/15/17 22:47 Temperature 98.7 F 11/15/17 22:47 Pulse Rate 121 H 11/16/17 00:15 Respiratory Rate 34 H 11/16/17 00:15 Blood Pressure 108/65 11/16/17 00:00 Pulse Oximetry 98 11/16/17 00:15 Overdose - MDM Narrative Medical decision making narrative: Patient is given 50 g charcoal dose since the timing of his possible ingestion is somewhat questionable, patient is also given 1 L normal saline IV fluid bolus - CBC - n CMP - mild electrolyte abnormalities consistent with alcohol abuse and dehydration UDS - positive only for benzodiazepines UA - normal EtOH - elevated at 288 Patient has been cooperative, mildly somnolent, but has maintained his airway and is easily awakened throughout the ER course. It is strongly suspected that the patient did not take the amount of lorazepam or Haldol that he claims to based on his current mental status as well as no worsening during the ER course. However due to the patient's claims as well as his psychiatric fragility , patient is being admitted to the ICU for depression with suicidal ideation and overdose, as well as alcohol abuse and intoxication Dr. Mika boo - Lab Data Result diagrams: 11/15/17 23:11 11/15/17 23:11 Lab Results 11/15/17 11/15/17 11/15/17 Range/Units 23:11 23:11 23:16 WBC 14.0 H D (4.5-11.0) T/MM3 RBC 5.10 (4.50-5.90) M/MM3 Hgb 15.5 (13.5-17.5) GM/DL Hct 45.0 (41-53) % MCV 88.2 (80-100) UM3 MCH 30.4 (26-34) UUG MCHC 34.4 (31-37) GM/DL RDW Std Deviation 43.3 (36.9-50.2) FL Plt Count 139 D (130-400) T/MM3 MPV 10.3 (9.4-12.4) UM3 Immature Gran % (Auto) 0.1 (0.0-0.5) % Neut % (Auto) 72.3 H (33-66) % Lymph % (Auto) 19.8 L (23-45) % Wilcox % (Auto) 6.7 (0-9.0) % Eos % (Auto) 0.9 (0-4) % Baso % (Auto) 0.2 (0-2) % Neut # (Auto) 10.1 H (1.8-7.7) T/MM3 Lymph # (Auto) 2.8 (1-4.8) T/MM3 Wilcox # (Auto) 0.9 H (0-0.8) T/MM3 Eos # (Auto) 0.1 (0-0.5) T/MM3 Baso # (Auto) 0.0 (0-0.2) T/MM3 Abs Immat Gran (auto) 0.02 (0.00-0.03) T/MM3 Turbidity < 20 (0-20) Sodium 154 H D (134-144) MEQ/L Potassium 3.3 L (3.6-5) MEQ/L Chloride 112 H (98-107) MEQ/L Carbon Dioxide 26 (22-30) MEQ/L Anion Gap 16 H (5-15) meq/L BUN 10.0 (9-20) MG/DL Creatinine 0.7 L (0.8-1.5) mg/dL GFR Calculation 123 BUN/Creatinine Ratio 14 (6-26) RATIO Glucose 100 (75-110) MG/DL Calculated Osmolality 294 H (261-280) MOSM/KG Calcium 9.1 (8.4-10.2) MG/DL Total Bilirubin 0.40 (0.20-1.30) MG/DL Icterus Index < 2 (0-7) AST 27 (17-59) U/L ALT 30 (1-50) U/L Alkaline Phosphatase 65 (38-126) U/L Total Protein 7.1 (6.3-8.2) g/dL Albumin 4.3 (3.5-5.0) g/dL Globulin 2.8 (2.4-3.6) G/DL Albumin/Globulin Ratio 1.5 (1.1-2.2) RATIO Specimen Hemolysis < 15 (0-25) Ur Collection Type Urine, void-cc/notcc Urine Color Yellow (YELLOW) Urine Clarity Clear Urine pH 6.0 (5.0-8.0) Ur Specific Dyer 1.010 L (1.015-1.025) Urine Protein Negative (NEGATIVE) Urine Glucose (UA) Negative (NEGATIVE) Urine Ketones Negative (NEGATIVE) Urine Occult Blood Trace-intact (NEGATIVE) Urine Nitrate Negative (NEGATIVE) Urine Bilirubin Negative (NEGATIVE) Urine Urobilinogen 0.2 (NORMAL) EU/DL Ur Leukocyte Esterase Negative (NEGATIVE) Urinalysis Comment Microscopic not ind. Salicylates < 1.0 L (2-20) MG/DL Urine Opiates Screen ng/mL Ur Oxycodone Screen ng/mL Urine Methadone Screen ng/mL Ur Propoxyphene Screen ng/mL Acetaminophen < 10 L (10-30) UG/ML Ur Barbiturates Screen ng/mL U Tricyclic Antidepress ng/mL Ur Phencyclidine Scrn ng/mL Ur Amphetamines Screen ng/mL U Methamphetamines Scrn ng/mL U Benzodiazepines Scrn ng/mL Urine Cocaine Screen ng/mL U Cannabinoids Screen ng/mL Ur Drug Screen Confirm Alcohol, Quantitative 288 (<10) mg/dL 11/15/17 11/15/17 Range/Units 23:16 23:16 WBC (4.5-11.0) T/MM3 RBC (4.50-5.90) M/MM3 Hgb (13.5-17.5) GM/DL Hct (41-53) % MCV (80-100) UM3 MCH (26-34) UUG MCHC (31-37) GM/DL RDW Std Deviation (36.9-50.2) FL Plt Count (130-400) T/MM3 MPV (9.4-12.4) UM3 Immature Gran % (Auto) (0.0-0.5) % Neut % (Auto) (33-66) % Lymph % (Auto) (23-45) % Wilcox % (Auto) (0-9.0) % Eos % (Auto) (0-4) % Baso % (Auto) (0-2) % Neut # (Auto) (1.8-7.7) T/MM3 Lymph # (Auto) (1-4.8) T/MM3 Wilcox # (Auto) (0-0.8) T/MM3 Eos # (Auto) (0-0.5) T/MM3 Baso # (Auto) (0-0.2) T/MM3 Abs Immat Gran (auto) (0.00-0.03) T/MM3 Turbidity (0-20) Sodium (134-144) MEQ/L Potassium (3.6-5) MEQ/L Chloride (98-107) MEQ/L Carbon Dioxide (22-30) MEQ/L Anion Gap (5-15) meq/L BUN (9-20) MG/DL Creatinine (0.8-1.5) mg/dL GFR Calculation BUN/Creatinine Ratio (6-26) RATIO Glucose (75-110) MG/DL Calculated Osmolality (261-280) MOSM/KG Calcium (8.4-10.2) MG/DL Total Bilirubin (0.20-1.30) MG/DL Icterus Index (0-7) AST (17-59) U/L ALT (1-50) U/L Alkaline Phosphatase (38-126) U/L Total Protein (6.3-8.2) g/dL Albumin (3.5-5.0) g/dL Globulin (2.4-3.6) G/DL Albumin/Globulin Ratio (1.1-2.2) RATIO Specimen Hemolysis (0-25) Ur Collection Type Urine Color (YELLOW) Urine Clarity Urine pH (5.0-8.0) Ur Specific Dyer (1.015-1.025) Urine Protein (NEGATIVE) Urine Glucose (UA) (NEGATIVE) Urine Ketones (NEGATIVE) Urine Occult Blood (NEGATIVE) Urine Nitrate (NEGATIVE) Urine Bilirubin (NEGATIVE) Urine Urobilinogen (NORMAL) EU/DL Ur Leukocyte Esterase (NEGATIVE) Urinalysis Comment Salicylates (2-20) MG/DL Urine Opiates Screen Negative ng/mL Ur Oxycodone Screen Negative ng/mL Urine Methadone Screen Negative ng/mL Ur Propoxyphene Screen Negative ng/mL Acetaminophen (10-30) UG/ML Ur Barbiturates Screen Negative ng/mL U Tricyclic Antidepress Negative ng/mL Ur Phencyclidine Scrn Negative ng/mL Ur Amphetamines Screen Negative ng/mL U Methamphetamines Scrn Negative ng/mL U Benzodiazepines Scrn Positive ng/mL Urine Cocaine Screen Negative ng/mL U Cannabinoids Screen Negative ng/mL Ur Drug Screen Confirm Sent out Alcohol, Quantitative (<10) mg/dL Disposition Clinical Impression: Depression with suicidal ideation Benzodiazepine overdose Qualifiers: Encounter type: initial encounter Injury intent: intentional self-harm Qualified Code(s): T42.4X2A - Poisoning by benzodiazepines, intentional self- harm, initial encounter Alcohol intoxication Qualifiers: Complication of substance-induced condition: uncomplicated Qualified Code(s): F10.920 - Alcohol use, unspecified with intoxication, uncomplicated Disposition: 02 To [place] [facility] [place] Condition: Stable Prescriptions: No Action Haloperidol [Haldol] 0.5 mg PO TID PRN #20 tab PRN Reason: Agitation/Restlessness LORazepam [Ativan] 1 mg PO BID PRN #20 tab PRN Reason: Alcohol Withdrawl Symptoms Multivitamin [Multivitamins] 1 tab PO DAILY #1 bottle atorvastatin See Label Instructions PO .COMPLEX trazodone 150 mg tablet 150 mg PO HS tab aspirin 81 mg tablet,delayed release 81 mg PO DAILY lisdexamfetamine 20 mg capsule 20 mg PO QAM Referrals: Cathy James APRN [Primary Care Provider] - - Seen By: physician
--- OUTSIDE RECORDS SUMMARY | 2017-11-15 23:13 | External Medical Summary | Clinical Summary ---
:1975 Author Organization [facility] Address [address] [id number] Care Team Providers Name Role Phone Unavailable [...] Taken Blood Pressure 142/96 07/18/2016 8:24 AM QUALITY SUPERVISOR Pulse 132 07/18/2016 8:24 AM QUALITY SUPERVISOR Temperature 37.1 C (98.7 F) 07/18/2016 8:23 AM QUALITY SUPERVISOR Respiratory Rate 18 07/18/2016 8:24 AM QUALITY SUPERVISOR Oxygen Saturation 98% 07/17/2016 7:31 AM QUALITY SUPERVISOR Inhaled Oxygen Concentration - - Weight 74.8 kg (165 lb) 07/16/2016 1:18 AM QUALITY SUPERVISOR Height 170.2 cm (5' 7") 07/16/2016 1:18 AM QUALITY SUPERVISOR Body Mass Index 25.84 07/16/2016 1:18 AM QUALITY SUPERVISOR Plan of Treatment Health Maintenance Due Date Last Done Comments Varicella Vaccines (1 of 2 - 2 Dose Adolescent Series) 1987 DTaP,Tdap,and Td Vaccines (1 - Tdap) 1993 Influenza Vaccine (Season Ended) 2018 Implants Implanted Type Area Principal Hardware Architect Device Expiration Date Model / Identifier Serial / Lot Filter-Ivc Filter-IVC Results Not on filefrom Last 3 Months
[2017-11-15] MEDS: SALINE FLUSH 10ml SYRINGE IVF PRN (23:38)
[2017-11-16] MEDS ORDERED: LR 1,000 ML IV SCH (01:45)
[2017-11-16] MEDS ORDERED: ONDANSETRON 4 MG/2 ML INJECTION IVP PRN (01:45)
[2017-11-16] MEDS ORDERED: SENNA + DOCUSATE TABLET PO PRN (01:45)
[2017-11-16] MEDS ORDERED: BISACODYL 10 MG SUPPOSITORY RECTALLY PRN (01:45)
[2017-11-16] MEDS: SALINE FLUSH 10ml SYRINGE IVF PRN (01:55)
[2017-11-16 01:59] VITALS: BMI 21.2
--- NOTE | 2017-11-16 02:18 | History & Physical Report ---
History of Present Illness Date: 11/16/17 Chief complaint: Suicide attempt HPI: The pti s a 42 yo alcoholic who presents to the ER ellen after just being discharged from the hospital on11/14. He states he went home and proceeded to drink a gallon of vodka daily and ellen took all of her ativan's and haldol that were prescribed today at 2100 on 11/15 because " I was not in a safe environment". He states his roomate is a bad influence on him and caused him to drink. During my interview at 0200, he was alert and oriented, able to answer questions appropiately. Review of Systems - Constitutional Constitutional: Present: headache(s) - Cardiovascular Cardiovascular: Absent: chest pain, syncope, edema - Respiratory Respiratory: Absent: cough - Gastrointestinal Gastrointestinal: Absent: abdominal pain - Psychiatric Psychiatric: Present: anhedonia, anxiety, depression, difficulty concentrating, suicidal ideation. Absent: behavioral changes, hallucinations Past Medical History Medical History: Medical History (Last Reviewed 11/16/17 @ 02:18 by Luis Carlos Brennan MD) Depression (Acute) Anxiety (Acute) History of blood clots (Acute) Medical History Updates: Alcohol abuse. Chronic pain - back and bilateral knees. Hyperlipidemia. CAD. Depression. Persistent and recurrent suicidal ideation/gestures. Anxiety. Tobacco dependency. History of DVT - [place] filter in place. History of seizures with alcohol withdrawal. History of suicidal ideation with attempted overdose. Surgical History: Bilat [facility], 05/2012. [place] filter in place Family History: Family History (Last Reviewed 07/05/17 @ 08:58 by Dana West MD) Mother No problems noted. Family History: No Significant Family History - Social History Smoking status: Current every day smoker Current residence: Apartment/Private Home Medications Home Medications Medication Instructions Recorded Confirmed Type atorvastatin See Label Instructions PO .COMPLEX 03/27/17 History aspirin 81 mg tablet,delayed 81 mg PO DAILY 07/05/17 History release lisdexamfetamine 20 mg capsule 20 mg PO QAM 07/05/17 History trazodone 150 mg tablet 150 mg PO HS tab 07/05/17 History Haloperidol [Haldol] 0.5 mg PO TID PRN #20 tab 11/14/17 Rx LORazepam [Ativan] 1 mg PO BID PRN #20 tab 11/14/17 Rx Multivitamin [Multivitamins] 1 tab PO DAILY #1 bottle 11/14/17 Rx Allergies Allergy/AdvReac Type Severity Reaction Status Date / Time No Known Allergies Allergy Verified 11/16/17 00:40 Exam Vital Signs: Temperature 98.7 F 11/15/17 22:47 Pulse Rate 113 H 11/16/17 01:30 Respiratory Rate 18 11/16/17 01:30 Blood Pressure 108/65 11/16/17 00:00 Pulse Oximetry 95 11/16/17 02:06 Height/Weight/BMI: Height 1.7 m Weight 61.6 kg Body Mass Index 21.2 - Constitutional Present: no acute distress, well developed - Routine HEENT Exam Head: Present: normocephalic - Routine Respiratory Exam Present: CTA bilaterally - Routine Cardiovascular Exam Present: RRR, no murmur - Routine Abdominal Exam Present: soft, normoactive bowel sounds, non distended, non tender - Routine Extremities Exam Present: no edema Results - Labs CBC & Chem 7: 11/15/17 23:11 11/15/17 23:11 Assessment and Plan (1) Alcohol intoxication Current visit: Yes Status: Acute (2) Depression with suicidal ideation Current visit: Yes Status: Acute (3) Benzodiazepine overdose Current visit: Yes Status: Acute Assessment and Plan: Will need to start the pt on IVF, recheck labs in am, SW has been consulted and will need placement in a psych facility when medically stable. currently on telemetry. DVT Prophylaxis: SCD's GI Prophylaxis: Protonix - Physician Narrative Narrative: Date: 11/16/17 Time: 214 Hospital Course Summary Disclaimer: The visit summary below is not to be considered part of the above Progress Note.
[2017-11-16] MEDS ORDERED: ALBUTEROL/IPRATROPIUM 2.5mg-0.5mg/3ml NEB AEROSOL PRN (02:22)
[2017-11-16] MEDS: LR 1,000 ML IV SCH ×3 (02:30→16:25)
[2017-11-16] MEDS: ENOXAPARIN 40 MG/0.4 ML INJECTION SQ SCH (10:32)
[2017-11-16] MEDS: ASPIRIN *EC* 81 MG TABLET PO SCH (10:32)
[2017-11-16] MEDS ORDERED: NS 1,000 ML IV SCH ×2 (12:15→16:00)
--- NOTE | 2017-11-16 12:15 | Progress Note ---
Progress Note: Patient seen on day of discharge during last admission and denied SI, stating that he would be able to call for support if SI returned. Patient then returned after overdosing in an admitted suicide attempt on the scripts provided upon discharge. Thus, patient failed outpatient treatment and f/u and needs further inpatient psychiatric care. Screen will be necessary as patient has Medicaid. He states that he does not want to go to [facility] but if this is recommended, [facility] may be the only option. Involuntary court hold may become necessary if this is the case. Please do not allow patient to leave AMA and file a court hold if necessary.
[2017-11-16] MEDS: ACETAMINOPHEN 325 MG TABLET PO PRN (20:21)
[2017-11-16] MEDS ORDERED: ATORVASTATIN 20 MG TABLET PO SCH (21:00)
[2017-11-17] MEDS: ACETAMINOPHEN 325 MG TABLET PO PRN (03:45)
[2017-11-17] MEDS ORDERED: PANTOPRAZOLE 40 MG TABLET PO SCH (06:30)
[2017-11-17 08:15] VITALS: TEMP 98
--- NOTE | 2017-11-17 08:29 | Progress Note ---
- Date 11/17/17 Subjective: Mr. Virgen is a 42-year-old male who was just discharged on 11/14 after presenting with alcohol intoxication and unresponsiveness. He did sober up rapidly. He was found to be depressed and despondent. Over the course of a couple of days he improved and was subsequently dismissed on the with lorazepam 1 mg and Haldol .5 mg. The patient reported going immediately home and drinking his typical 1 gallon of vodka when he and he decided to kill himself. He reports that he took all of the lorazepam he was given which is 20 tablets and all the Haldol he was given which was 20 tablets. When seen by me on the morning he was sound asleep. I came back early afternoon and he is awake, alert and following commands. I did tell him that we are planning on trying to get him somewhere inpatient for help and he agreed. Case management worked very hard to find him a place to go. [facility] once his labs have normalized. I do think they will after hydration as I think he is just a bit dehydrated. The plan is for him to go on 11/17/17. When seen by me this morning he is alert and oriented. He denies any complaints fever, chills, shortness of breath. He denies chest pain or palpitations. He denies nausea, vomiting, diarrhea, constipation, abdominal pain. He denies any genitourinary symptoms. He is agreeable to going inpatient psych. Objective Vital signs: Temperature 98.0 F 11/17/17 08:00 Pulse Rate 76 11/17/17 04:00 Respiratory Rate 18 11/17/17 04:00 Blood Pressure 124/79 11/17/17 04:00 Pulse Oximetry 98 11/17/17 04:00 Height/Weight/BMI: Weight 62.9 kg Comments: Gen: alert and oriented. NAD. Skin: warm and dry. HEENT: NC/AT PERRL, EOMI, sclera, lids and conjunctiva wnl. MMM. OP clear. Neck: supple, No JVD, Carotids 2+ without bruits. Lungs: clear, No rhonchi, rales or wheezes Heart: regular. No murmur, rub or gallop Abdomen: soft. NT/ND. +BS. MS: good strength and ROM. No edema. Neuro: no focal deficit Psy: flat affect. Results - Labs CBC & Chem 7: 11/17/17 03:45 11/17/17 03:45 Assessment and Plan (1) Alcohol intoxication Current visit: Yes Status: Acute (2) Depression with suicidal ideation Current visit: Yes Status: Acute (3) Benzodiazepine overdose Current visit: Yes Status: Acute Assessment and Plan: Assessment and Plan: (1) Alcohol intoxication -repeat alcohol level was <10 -Dr. Kim recommended: inpatient psychiatric care. Screen will be necessary as patient has Medicaid. He states that he does not want to go to [facility] but if this is recommended, [facility] may be the only option. Involuntary court hold may become necessary if this is the case. Please do not allow patient to leave [place] and file a court hold if necessary. -Plan to go to [facility] (2) Depression with suicidal ideation (3) Benzodiazepine overdose (4) Dehydration -Improved with IVF (5) coronary artery disease -continue Statin and aspirin (6) Prophylaxis -Lovenox and PPI Once all arrangements are made he will plan to [facility]. - Physician Narrative Narrative: Date: 11/17/17 Time: 08 Hospital Course Summary Disclaimer: The visit summary below is not to be considered part of the above Progress Note.
[2017-11-17] MEDS: ASPIRIN *EC* 81 MG TABLET PO SCH (09:00)
[2017-11-17] MEDS: ENOXAPARIN 40 MG/0.4 ML INJECTION SQ SCH (09:00)
--- NOTE | 2017-11-17 09:40 | Discharge Summary ---
Discharge Information Date of admission: 11/16/17 17:13 Anticipated date of discharge: 11/17/17 Attending Physician: Anna Roberts MD Primary care physician: Cathy James APRN Consults: Dr. Kim - Discharge Diagnosis (1) Alcohol intoxication Status: Acute (2) Depression with suicidal ideation Status: Acute (3) Benzodiazepine overdose Status: Acute Suicide attempt H/O suicide ideation and attempts in the past Alcoholism/abuse Depression H/O Seizures with alcohol withdrawal H/O DVTs CAD Tobacco dependence HLP - Laboratory Labs: 11/17/17 03:45 11/17/17 03:45 History of Present Illness HPI: Mr. Virgen is a 42-year-old male who was just discharged on 11/14 after presenting with alcohol intoxication and unresponsiveness. He did sober up rapidly. He was found to be depressed and despondent. Over the course of a couple of days he improved and was subsequently dismissed on the with lorazepam 1 mg and Haldol .5 mg. The patient reported going immediately home and drinking his typical 1 gallon of vodka when he and he decided to kill himself. He reports that he took all of the lorazepam he was given which is 20 tablets and all the Haldol he was given which was 20 tablets. When seen by the this morning he was sound asleep. I came back early afternoon and he is awake, alert and following commands. I did tell him that we are planning on trying to get him somewhere inpatient for help and he agreed. He denies any fever or chills. He denies shortness of breath. He does of a nonproductive cough. He denies any chest pain or palpitations. He denies any nausea or vomiting. He denies any diarrhea or constipation. He denies any black tarry stools or bloody stools. He denies any problems with urination and he denies lower extremity edema. Objective Vital signs: Temperature 98.0 F 11/17/17 08:00 Pulse Rate 76 11/17/17 04:00 Respiratory Rate 18 11/17/17 04:00 Blood Pressure 124/79 11/17/17 04:00 Pulse Oximetry 98 11/17/17 04:00 Height/Weight/BMI: Weight 62.9 kg Comments: Gen: alert and oriented. NAD. Skin: warm and dry. HEENT: NC/AT PERRL, EOMI, sclera, lids and conjunctiva wnl. MMM. OP clear. Neck: supple, No JVD, Carotids 2+ without bruits. Lungs: clear, No rhonchi, rales or wheezes Heart: regular. No murmur, rub or gallop Abdomen: soft. NT/ND. +BS. MS: good strength and ROM. No edema. Neuro: no focal deficit Psy: flat affect. Hospital Course This is a general summary of the patient's hospital course. For more details refer to the complete medical record. Hospital course: Mr. Virgen was admitted to the ICU for his alcohol intoxication and suicidal attempt. For the most part he slept throughout the 1st day. By late evening he was awake and alert. He was seen by Dr. Russell Kim who recommended inpatient psychiatric care. He she did feel the patient was a danger to himself and that an involuntary court order hold may be necessary if he would not cooperate with the plan to be transferred to an inpatient psychiatric unit. Case management did arrange for the patient to go to [facility] inpatient facility once his labs normalized. The patient was that dehydrated on admission due to his alcohol intoxication and was given IV fluids. His labs to normalize the next day. Arrangements was subsequently made for him to be transferred to [facility] inpatient facility in the patient was felt to be stable for discharge. Discharge Plan - Discharge Disposition Disposition: 65 To Psych Hosp/Unit *Condition: Stable Reason For Visit (Visit label in EMR): Danger to himself - Discharge Medications *Discharge Medications: New Acetaminophen [Tylenol] 325 - 650 mg PO Q5H PRN tab PRN Reason: Discomfort Atorvastatin [Lipitor] 20 mg PO HS tab Continue Multivitamin [Multivitamins] 1 tab PO DAILY #1 bottle aspirin 81 mg tablet,delayed release 81 mg PO DAILY Discontinued Haloperidol [Haldol] 0.5 mg PO TID PRN #20 tab PRN Reason: Agitation/Restlessness LORazepam [Ativan] 1 mg PO BID PRN #20 tab PRN Reason: Alcohol Withdrawl Symptoms trazodone 150 mg tablet 150 mg PO HS tab lisdexamfetamine 20 mg capsule 20 mg PO QAM No Action atorvastatin See Label Instructions PO .COMPLEX - Discharge Packet/Instructions *Diet: Heart healthy *Activity: As tolerated *Pain Management/Treatment: Tylenol *Wound Care: N/A *Expected Signs/Symptoms: N/A *Notify Physician if: N/A *During Business Hours Contact: N/A *After Business Hours Contact: N/A *Pending Lab/Results: No Pending Lab - Referrals/Follow Up - Patient Handouts - Dismissal Complete Discharge Instructions are:: Complete Physician Narrative - Narrative Attestation Narrative: Date: 11/17/17 Time: 935
[2017-11-17 10:16] VITALS: BP 130/84
[2017-11-17 10:17] VITALS: PULSE 66; RESP 14; O2SAT 98
== END 2017-11-17 12:51 | DRG 897 ==
LOC: ED 22:47 → CCU 22:47
PROVIDERS: ADMIT Internal Medicine; ATTEND Internal Medicine Cardiovascular Disease